=== PATIENT | female | born 1980 | race Two or more races ===

== ENCOUNTER 2017-02-17 05:09 | Emergency (ER) ==
[2017-02-17 05:20] VITALS: BP 117/74; TEMP 97.8; BMI 33.5
--- NOTE | 2017-02-17 05:36 | ED.PDOC ---
General ED Provider: Dr. TUSHAR PEDERSON-ER Chief Complaint: Non-specific Complaint Stated Complaint: i had this bump that came up and it burst and had pus Time Seen by Physician: 05:15 Mode of Arrival: Walk-In Information Source: Patient Exam Limitations: No limitations Nursing and Triage Documentation Reviewed and Agree: Yes Skin Complaint Exam - Skin/Soft Tissue Complaint/Exam Onset/Duration: 24hrs Symptoms Are: Still present Timing: Constant Initial Severity: Mild Current Severity: Mild Location: posterior to right ear Character: Reports: Redness, Swelling, Raised, Painful Alleviating: Reports: None Associated Signs and Symptoms: Reports: Drainage, Tenderness. Denies: Fever, Chills, Itching, Bruising, Red streaks, Joint swelling Related Surgical History: Reports: None Recent Exposure to Others w/Similar Symptoms: No Skin Findings: Present: Fluctuant mass, Pustules Joint Tenderness Present: No Differential Diagnoses: Abscess Review of Systems - Review Of Systems Constitutional: Reports: No symptoms Eyes: Reports: No symptoms Ears, Nose, Mouth, Throat: Reports: No symptoms Respiratory: Reports: No symptoms Cardiac: Reports: No symptoms GI: Reports: No symptoms : Reports: No symptoms Musculoskeletal: Reports: No symptoms Skin: Reports: Lumps Neurological: Reports: No symptoms Endocrine: Reports: No symptoms Hematologic/Lymphatic: Reports: No symptoms All Other Systems: Reviewed and Negative Past Medical History - Past Medical History Endocrine: Reports: Unknown Cardiovascular: Reports: Unknown Respiratory: Reports: Unknown Hematological: Reports: Unknown Gastrointestinal: Reports: Unknown Genitourinary: Reports: Unknown Neuro/Psych: Reports: Unknown Musculoskeletal: Reports: Unknown Cancer: Reports: Unknown Last Menstrual Period: 2016, HAD A BABY 2 MONTHS AGO - Surgical History General Surgical History: Reports: Unknown - Family History Family History: Reports: Unknown - Social History Smoking Status: Never smoker Hx Substance Use: No Alcohol Screening: None Lives: With family - Immunizations Tetanus Shot up to Date: Yes Physical Exam - Physical Exam Appearance: Well-appearing, No pain distress, Well-nourished Eyes: TERESA, EOMI, Conjunctiva clear ENT: Ears normal, Nose normal, Oropharynx normal Neck: Supple Respiratory: Airway patent, Breath sounds clear, Breath sounds equal, Respirations nonlabored Cardiovascular: RRR GI/: Soft, Nontender, No masses, Bowel sounds normal, No Organomegaly Musculoskeletal: Normal strength, ROM intact, No edema, No calf tenderness Skin: Warm, Dry, Normal color (noted 1.2cm posterior to right ear) Neurological: Sensation intact, Motor intact, Reflexes intact, Cranial nerves intact, Alert, Oriented Psychiatric: Affect appropriate, Mood appropriate Critical Care Note - Critical Care Note Total Time (mins): 0 Course - Course Vital Signs: Temp Pulse Resp BP Pulse Ox 02/17/17 05:10 97.8 F 76 18 117/74 97 Departure - Departure Time of Disposition: 05:37 Disposition: HOME SELF-CARE Discharge Problem: Abscess Instructions: Abscess (ED) Condition: Good Pt referred to PMD for follow-up: Yes Additional Instructions: clindamycin 150mg tid x 7days--wash with soap and water and apply bactroban ointment tll healed--pump and dump until antbx finished Allergies/Adverse Reactions: Allergies No Known Drug Allergies Adverse Reaction (Verified 02/17/17 05:19) Home Medications: Ambulatory Orders 1 [Unobtainable] 02/17/17 Disposition Discussed With: Patient
== END 2017-02-17 05:43 | disposition home or self-care (01) ==
LOC: ED 05:09
DX: H60.01 Abscess of right external ear (principal)
CPT/HCPCS: 99282

== ENCOUNTER 2017-12-31 11:37 | Outpatient (CLI) | END 2017-12-31 11:38 | disposition home or self-care (01) | LOC: RHC 11:37 | PROVIDERS: ATTEND Emergency Medicine | DX: R68.89 Other general symptoms and signs (principal); J06.9 Acute upper respiratory infection, unspecified | CPT/HCPCS: 87651; 87804 ==

== ENCOUNTER 2018-01-21 16:26 | Outpatient (CLI) | END 2018-01-21 16:27 | disposition home or self-care (01) | LOC: LAB 16:26 | PROVIDERS: ATTEND Emergency Medicine | DX: R53.82 Chronic fatigue, unspecified (principal); E66.9 Obesity, unspecified | CPT/HCPCS: 36415; 83036; 84436; 84443; 84480; 85025 ==

== ENCOUNTER 2019-02-03 15:17 | Outpatient (CLI) | payer OTHER | END 2019-02-03 15:18 | disposition home or self-care (01) | LOC: RHC-LAB 15:17 | PROVIDERS: ATTEND Nurse Practitioner Family | DX: R05 Cough (principal) | CPT/HCPCS: 87502; 87651 ==